=== PATIENT | male | born 1980 | race Caucasian/White ===

== ENCOUNTER 2018-05-29 19:30 | Emergency (ER) | payer BC ==
[~2018-05-29] VITALS: Ht 190.5 cm; Wt 84.4 kg
[2018-05-29 20:00] VITALS: BP 158/92
[2018-05-29] MEDS ORDERED: LORazepam 0.5mg tab ORAL ONE ×2 (20:15→22:00)
[2018-05-29] MEDS ORDERED: HydrOXYzine 50mg tab ORAL ONE (20:15)
--- NOTE | 2018-05-29 20:15 | Emergency Room Report ---
History of Present Illness General Chief Complaint: General Complaint Source: Patient Present Illness HPI 38 YO Male presents to the ED c/o elevated BP, anxiousness and neck tightness x 2 hours. pt. was given clonidine for his symptoms. He took 0.2 with no relief. Pt. finished week long detox for ETOH yesterday. pt. reports sudden d/c of Ativan from 4mg daily to 1mg his last day and then dc'd. pt. reports 2 months of ETOH use. reports being in rehab x 2. pt. denies hx of w/d seizures. he reports his longest period of sobriety was 1.5 years which was just prior to his most recent relapse. pt. reports hx of significant anxiety. He also states that he just started new medication: Zoloft 3 days ago. Allergies: Coded Allergies: No Known Allergies (Unverified , 05/29/18) Patient History Past Medical History: see triage record, other - ETOH Dependence, anxiety Past Surgical History: none Pertinent Family History: none Review of Systems All Other Systems: negative except mentioned in HPI Physical Exam Vital Signs Date Time Temp Pulse Resp B/P (MAP) Pulse Ox O2 Delivery O2 Flow Rate FiO2 05/29/18 19:40 98.7 101 18 152/91 98 Room Air 98.8 Medical Decision Making PA Attestation Dr. Maki is my supervising Physician whom patient management has been discussed with. Diagnostic Impression: Primary Impression: Withdrawal symptoms, alcohol Qualified Codes: F10.230 - Alcohol dependence with withdrawal, uncomplicated Additional Impressions: Elevated BP without diagnosis of hypertension History of alcohol dependence ER Course 38 YO Male presents to the ED c/o elevated BP, anxiousness and neck tightness x 2 hours. pt. was given clonidine for his symptoms. He took 0.2 with no relief. Pt. finished week long detox for ETOH yesterday. pt. reports sudden d/c of Ativan from 4mg daily to 1mg his last day and then dc'd. pt. reports 2 months of ETOH use. reports being in rehab x 2. pt. denies hx of w/d seizures. he reports his longest period of sobriety was 1.5 years which was just prior to his most recent relapse. pt. reports hx of significant anxiety. He also states that he just started new medication: Zoloft 3 days ago. Ddx considered but are not limited to Anxiety, Withdraw, thyroid storm, Serotonin syndrome just to name a few. Vital signs: mild Tacycardia 101, BP 152/92 mild elevation, pt. is afebrile H&PE are most consistent with anxiety attack ORDERS: -CMP: Hyponatremia 123, hypochloremia 93 cr- normal, LFT's normal ED INTERVENTIONS: -0.5 mg Ativan po ( Pt. Declines wants to avoid controlled substances as much as possible.) -1 liter NS - Atarax PO -Robaxin PO --D/w pt. that will re-assess after interventions and determine if he would require to return to detox or if he is stable for close outpatient follow up. -Pt. continues to feel " anxious" and reports having intermittent hot/cold flashes. --d/w pt. that My recommendation is to return back to detox for extended taper due to w/d symptoms. Pt. verbalized his understanding and agreement. DISCHARGE: At this time pt. is stable for d/c to home. Will provide printed patient care instructions, and any necessary prescriptions. Care plan and follow up instructions have been discussed with the patient prior to discharge. Last Vital Signs Date Time Temp Pulse Resp B/P (MAP) Pulse Ox O2 Delivery O2 Flow Rate FiO2 05/29/18 19:40 98.7 101 18 152/91 98 Room Air 98.8 Disposition: HOME, SELF-CARE - with Employee of His [facility] rehab program. Condition: Stable Physician Consult: Dr. Maki Patient Instructions: Alcohol Withdrawal, [id number] Additional Instructions: Recommend Return to Detox for extended treatment due to onset of w/d symptoms. Also recommend follow up with psychiatrist re: New medication and possible negative medication side effects. Follow up with your Primary Care Provider in 3-5 days, even if your symptoms have resolved. Return sooner to ED if new symptoms occur, or current symptoms become worse. Do not drink alcohol, drive, or operate heavy machinery while taking Vistaril, Ativan or Robaxin as these cause drowsiness. - Please note that this Emergency Department Report was dictated using [employer] technology software, occasionally this can lead to erroneous entry secondary to interpretation by the dictation equipment. Paloma Theodore May 29, 2018 20:15
[2018-05-29] MEDS ORDERED: Methocarbamol 750mg tab ORAL ONE (20:45)
[2018-05-29 21:10] LABS: ANION GAP 6 mmol/L (5-15); BLOOD UREA NITROGEN 15 mg/dL (7-18); CALCIUM 9.2 MG/DL (8.5-10.1); CARBON DIOXIDE 26 MMOL/L (21-32); CHLORIDE 92 MMOL/L (98-107); POTASSIUM 3.4 MMOL/L (3.5-5.1); SODIUM 123 MMOL/L (136-145)
[2018-05-29 21:15] LABS: ALANINE AMINOTRANSFERASE 33 U/L (12-78); ALBUMIN 4.3 G/DL (3.4-5.0); ALBUMIN/GLOBULIN RATIO 1.5 (1.0-2.7); ALKALINE PHOSPHATASE 72 U/L (46-116); ASPARTATE AMINO TRANSFERASE 28 U/L (15-37); BILIRUBIN,TOTAL 0.9 MG/DL (0.2-1.0)
[2018-05-29 22:00] VITALS: BP 152/89
[2018-05-29 22:30] VITALS: BP 152/89
== END 2018-05-29 23:15 | disposition home or self-care (01) ==
LOC: EMR 23:11
DX: F10.239 Alcohol dependence with withdrawal, unspecified (principal); R03.0 Elevated blood-pressure reading, without diagnosis of hypertension
CPT/HCPCS: 36415; 80053; 96360; 99283